=== PATIENT | male | born 2000 | race Hispanic/Latino ===

== ENCOUNTER 2021-12-17 20:11 | Emergency (ER) | payer SELFPAY ==
[2021-12-17] MEDS ORDERED: Ketorolac Tromethamine 30 MG/ML VIAL ONE (20:39)
== END 2021-12-17 21:09 | disposition home or self-care (01) ==
LOC: ERS 20:11
DX: S62.314A Displaced fracture of base of fourth metacarpal bone, right hand, initial encounter for closed fracture (principal); S62.316A Displaced fracture of base of fifth metacarpal bone, right hand, initial encounter for closed fracture; W22.01XA Walked into wall, initial encounter
CPT/HCPCS: 29125; 96372; J1885

== ENCOUNTER 2022-01-02 00:37 | Emergency (ER) | payer SELFPAY | END 2022-01-02 02:35 | disposition home or self-care (01) | LOC: ERS 00:37 | DX: S62.306S Unspecified fracture of fifth metacarpal bone, right hand, sequela (principal) | CPT/HCPCS: 99281 ==